=== PATIENT | female | born 1955 | race Caucasian/White ===

== ENCOUNTER 2021-05-21 09:36 | Outpatient (CLI) | payer MEDICAID, SELFPAY ==
[2021-05-21 10:35] VITALS: BMI 33.8
--- NOTE | 2021-05-21 10:40 | ECG_ITS ---
[facility] Test Date: 2021-05-21 Pat Name: Celia Tucker Department: Room: Gender: Female Welding Specialist: Bharati Hewitt : 1955 Requested By: Fahad Hernadez Order Number: [id number] Singleton MD: Summer Pompa M.D. Interpretive Statements NAME OF STUDY: TREADMILL STRESS TEST INDICATION: Chest Pressure Baseline blood pressure of 146/93 mm Hg, heart rate of 92 beats per minute and oxygen saturation 94%. EKG showed normal sinus rhythm, right axis deviation with normal ST-Ts. The patient exercised for 6 minutes on a standard Abimael protocol. Patient attained a maximum heart rate of 165 beats per minute(105% of the maximum predicted heart rate) with a blood pressure at the peak exercise of 181/102 mm Hg and oxygen saturation 89%. The EKG at the peak exercise revealed sinus tachycardia with no significant ST-T wave changes. Patient did not have any chest pain or any significant arrhythmis with the exercise. The study was terminated due to exertional fatigue and maximum effort. During the recovery phase, there were no new changes. Blood pressure at the end of the recovery phase was 118/91 mm Hg with a heart rate of 104 beats per minute and oxygen saturation 98%. CONCLUSION: 1. Normal EKG response to treadmill exercise. 2. No exercise-induced chest pain or cardiac arrhythmia 3. Good exercise tolerance for age, attained a maximum of 7 METs. Maximum VO2 of 24.5 mL/kg/min. 4. Baseline hypertension with normal response to exercise. 5. Houser treadmill score of 6 suggestive of low risk. Electronically Signed On 05-22-2021 16:58:49 COFFEE MACHINE TECHNICIAN by Summer Pompa M.D. [id number]
[2021-05-21 11:17] VITALS: BP 118/91; PULSE 104
== END 2021-05-21 09:37 | disposition home or self-care (01) ==
LOC: CDL 09:38
PROVIDERS: PCP Family Medicine; Visit Provider Family Medicine
DX: R07.89 Other chest pain (principal); I10 Essential (primary) hypertension
CPT/HCPCS: 93017

== ENCOUNTER 2021-08-25 09:34 | Outpatient (CLI) | payer BC, MEDICAID, SELFPAY ==
--- NOTE | 2021-08-25 09:44 | MM_ITS ---
WS: [id number] BILATERAL SCREENING DIGITAL BREAST TOMOSYNTHESIS MAMMOGRAM WITH CAD HISTORY: SCREENING COMPARISON: 01/19/2013 Bilateral CC and MLO views with tomosynthesis and synthetic mammography submitted. Computer aided det ection analyzed. Breast composition: There are scattered areas of fibroglandular density. No suspicious masses, microc alcifications or architectural distortion. MM/[place] [id number] IMPRESSION: BI-RADS: 1-Negative FOLLOW UP: 1 Year Follow-up
== END 2021-08-25 09:35 | disposition home or self-care (01) ==
LOC: RAD 09:38
PROVIDERS: PCP Family Medicine; Visit Provider Family Medicine
DX: Z12.31 Encounter for screening mammogram for malignant neoplasm of breast (principal)
CPT/HCPCS: 77063; 77067